=== PATIENT | female | born 1985 | race Caucasian/White ===

== ENCOUNTER 2019-01-08 09:02 | Day surgery (SDC) | payer OTHER, MEDICAID ==
[2019-01-08] MEDS ORDERED: FENTAnyl 50 MCG/ML VIAL (10:44)
[2019-01-08] MEDS ORDERED: MIDAZOLAM 1 MG/ML 2 ML INJ ×4 (10:44)
== END 2019-01-08 12:18 | disposition home or self-care (01) ==
LOC: GIL 09:02
DX: K64.8 Other hemorrhoids (principal)
CPT/HCPCS: 45378; 84703